=== PATIENT | female | born 1950 | race Caucasian/White ===

== ENCOUNTER → 2021-09-14 | Outpatient (CLI) | payer MEDICARE, OTHER, SELFPAY ==
--- NOTE | 2021-09-14 16:04 | CT_ITS ---
HISTORY: OSTEO. TECHNIQUE: Helically acquired images were obtained of the left lower extremity utilizing ERIK protocol. A radiation dose optimization technique was used for this scan. IV Contrast dosage and agent: None. 1991 images. COMPARISON: None. FINDINGS: BONES: Right knee arthroplasty noted on the sales floor associate image. No acute osseous abnormality identified. ALIGNMENT/JOINT SPACES: Mild joint space narrowing of the hip. Tricompartmental degenerative changes of the knee with osteophytes and moderate medial compartment joint space narrowing. Unremarkable alignment. Mild left knee joint effusion. Degenerative changes of the ankle and foot. SOFT TISSUES: Subcutaneous edema of the left lower extremity. Ossification and thickening of the Achilles tendon from old trauma or degeneration. CT/Extremity Lower without Contra IMPRESSION: CT left lower extremity for Erik protocol. Degenerative changes of the left lower extremity. Electronically Signed: Tania Jay MD at 11:22 EDT ,
== END | disposition home or self-care (01) ==
LOC: CT 16:02
PROVIDERS: Referring Provider Student in an Organized Health Care Education/Training Program; Visit Provider Student in an Organized Health Care Education/Training Program
DX: M17.12 Unilateral primary osteoarthritis, left knee (principal)
CPT/HCPCS: 73700

== ENCOUNTER 2021-09-27 11:31 | Observation (INO) | payer MEDICARE, OTHER, SELFPAY ==
--- NOTE | 2021-09-18 10:35 | EKG12_ITS ---
Test Reason : Blood Pressure : / mmHG Vent. Rate : 085 BPM Atrial Rate : 085 BPM P-R Int : 152 ms QRS Dur : 086 ms QT Int : 380 ms P-R-T Axes : 046 025 048 degrees QTc Int : 452 ms Normal sinus rhythm Normal ECG Confirmed by JACKIE RIVERA, BIANKA ([id number]), fan mail editor BAR FORTUNE ([id number]) on 09/19/2021 8:49:16 AM Referred By: Mike Herman Confirmed By:BIANKA MEJIA MD
[2021-09-18 11:28] LABS: Absolute Lymphocyte Count 1.47 X10^3/uL (0.83-4.51); Absolute Neutrophil Count 3.6 X10^3/uL (2.0-7.7); Basophil# 0.11 X10^3/uL; Basophil% 1.8 % (0-1); Eosinophil# 0.41 X10^3/uL; Eosinophils% 6.5 % (0-5); Hematocrit 45.1 % (37-47); Hemoglobin 15.5 g/dL (12.0-15.0); Lymphocyte # 1.47 X10^3/ul (0.83-4.51); Lymphocyte % 23.4 % (19-41); Mean Corp Hgb Conc 34.4 g/dL (32-36); Mean Corpuscular Hgb 33.3 pg (27.0-32.0); Mean Corpuscular Volume 96.8 fL (81-99); Mean Platelet Vol. 9.4 fl (6.2-12.0); Monocyte# 0.62 X10^3/uL; Monocyte% 9.9 % (0-10); NRBC Flagged by Analyzer 0 % (0-5); Neutrophil # 3.64 X10^3/uL (2.7-7.7); Neutrophil % 58.1 % (47-70); Platelet Count 199 K/mm3 (150-450); RBC Distribution Width CV 12.4 % (11.6-14.6); RBC Distribution Width SD 43.9 fl (35.1-43.9); Red Blood Count 4.66 M/mm3 (4.2-5.4); White Blood Count 6.3 K/mm3 (4.4-11.0)
[2021-09-18 11:56] LABS: Hemoglobin A1c 4.3 % (3.8-5.6)
[2021-09-18 11:57] LABS: Albumin, Serum 3.5 g/dL (3.2-5.0); Anion Gap 6 (5-15); BUN 14 mg/dL (7-18); Chloride 108 mmol/L (98-107); Creatinine, Serum 0.74 mg/dL (0.55-1.02); EST Glomerular Filtration Rate 83 mL/min (>60); Est Glom Filt Rate - Afr Amer 100 mL/min (>60); Glucose 130 mg/dL (74-106); Magnesium 1.9 mg/dL (1.6-2.6); Potassium 3.8 mmol/L (3.5-5.1); Sodium Level 141 mmol/L (136-145)
[2021-09-27] VITALS (10 sets, daily range): BP systolic 106–155; BP diastolic 57–88; PULSE 72–90; RESP 16–18; TEMP 36.3–37.1; O2SAT 92–100; BMI 30.9
[2021-09-27] MEDS: Acetaminophen 500 MG Tablet 1000 MG PO ×3 (06:17→21:43)
[2021-09-27] MEDS: Gabapentin 600 MG Tablet PO (06:17)
[2021-09-27] MEDS: Magnesium 2 GM IV (06:27)
[2021-09-27] MEDS: Lactated Ringers 1,000 ML 15 ML IV (06:29)
--- NOTE | 2021-09-27 07:45 | KNEE_PTH ---
PATIENT: CONNOR PARSONS LOC: MS3 U#:[id number] AGE/SX: 71/F [place] [facility] RE09/27/[address]: Dr. Mike Herman DO : 1950 BED: 1 DIS: 09/28/2021 SPEC #: [id number] RECD: 09/27/21 11:06 STATUS: ALOK JEANINE #: [id number] JUNE: 09/27/21 07:[address]: Mike Herman DEPT: SURGICAL PATHOLOGY RECD BY: Gianna Musa Tissues: Knee, NOS Procedures: Decalcification bone/plaque Surgery Specimen Level IV HEADER OPERATION: ERAS, total knee replacement robotic arm assist PRE-OP DIAGNOSIS: Osteoarthritis left knee TISSUE SUBMITTED: Left knee bone and tissue MICROSCOPIC DIAGNOSIS Bone and soft tissue, left knee, total knee replacement/resection: Pieces of bone with degenerative osteoarthritic changes. Fibroadipose tissue, fibroconnective tissue and reactive synovial tissue. BASIL:sybil 10/01/2021 MICROSCOPIC DESCRIPTION Slides are reviewed. GROSS DESCRIPTION Received is one container designated bone and soft tissue left knee. The specimen consists of multiple fragments of parry-yellow bone measuring in aggregate 12 x 10 x 3 cm. A small piece of soft tissue is attached to a piece of bone measuring 4 x 1.5 x 0.5 cm. A number of bony fragments contain articular surfaces consistent with tibial plateau and femoral condyle and displaying prominent osteophyte formation, eburnation, and bone erosion. Barnworker Groom sections are submitted in two cassettes as follows: 1 - soft tissue, 2 - bone after decalcification. / BASIL:sybil 09/27/2021 TC:5 [facility]: [id number], [id number]
[2021-09-27] MEDS: Cefazolin 2 GM in 0.9% Normal Saline 100 ML IV (08:08)
[2021-09-27] MEDS: TXA 1000mg in NS100 100ml (IVPB at Incision) 660 MG IV (08:20)
[2021-09-27] MEDS: Lactated Ringers 1,000 ML 999 ML IV (08:30)
[2021-09-27 08:40] LABS: Bedside Glucose 94 mg/dL (74-106)
[2021-09-27] MEDS: TXA 1000mg in NS100 100ml (IVPB at Closure) 660 MG IV (10:45)
--- NOTE | 2021-09-27 11:32 | PCM.OPRPT ---
Report of Operation Date of Procedure: 09/27/21 Description of Surgical Findings:: Preoperative diagnosis: Left knee primary osteoarthritis Postoperative diagnosis: Left knee primary osteoarthritis Procedure: Cemented left total knee arthroplasty Surgeon: Mike Herman DO Can Striper: Lisa Horan PA-C Anesthesia: Spinal with sedation, adductor canal block Anesthesiologist: Dr. Garrett Complications: None apparent Drains: None Estimated blood loss: 50 cc Urinary output: None recorded IV fluids: 1200 cc crystalloid Specimens: Total knee resections Surgical implants: Alonzo triathlon X3 asymmetric patella size A35 10 mm thickness, triathlon cruciate retaining femoral #5, primary tibial baseplate #5, triathlon X3 tibial bearing insert CS size 5 9mm thickness Indications: This is a 71-year-old female seen in the outpatient setting diagnosed with left knee osteoarthritis. She failed nonoperative management with intra-articular corticosteroid injections, activity modification, bracing, aviz-onf-inidpht analgesics. X-rays revealed grade 4 changes. She also had significant patellofemoral arthritis. I recommended a left total knee arthroplasty. Patient had a right total knee arthroplasty performed in [place] a little over 2 years ago and has done well with this. The risks, benefits, alternatives to procedure reviewed with patient at length and she agreed to proceed. Risks included but were not limited to bleeding, infection, loss of life or limb, need for additional surgery, persistent pain, intraoperative or postoperative fracture, instability, loosening of components, wound complications, stiffness, neurovascular injury, DVT or PE. Patient expressed understanding these risks and wished to proceed with surgery. Informed consent was obtained in the outpatient setting. Description of procedure: Patient was identified in the preoperative holding area by name, medical record number, and date of . Informed set was confirmed with the patient. The operative knee was marked with a surgical marker. At time of her procedure, patient brought to the operative suite and positioned supine a standard operating table. Anesthesia then administered a spinal anesthetic in the sitting position. She was then repositioned in the supine position with all bony prominences well-padded. We then placed a well-padded pneumatic tourniquet on the left upper thigh. The left upper extremity was brought across patient's chest throughout the procedure. We then prepped and draped the left lower extremity in a normal, sterile orthopedic fashion. We performed a timeout with all parties in attendance in agreement with the side, site, operation be performed. No concerns were voiced and would like to proceed with surgery. 2 g Ancef was administered prior to the incision by anesthesia staff as well as 1 g IV TXA. I first exsanguinated the left lower extremity with a Esmarch bandage. Tourniquet was inflated to 280 mmHg. Esmarch was removed. I planned a standard midline approach to the left knee approximately 15 cm in length. Skin was sharply incised with a 10 blade scalpel developing full-thickness layers down to the retinaculum. Layers were developed identifying the VMO. I then planned a standard medial parapatellar arthrotomy performed in flexion. The anterior horn of the medial meniscus was released. Hoffa's fat pad was then released. I then everted the patella in extension and brought the knee into 90 degrees of flexion. The anterior horn of the lateral meniscus was then released. The ACL was split in its mid substance with a 10 blade. We then brought the knee back into extension. I measured the outer diameter of the patella to be approximately 46 mm, a patellar reamer was then selected. I measured the thickness of the patella to be 23 mm. I then reamed the patella to a depth of approximately 14 mm. A protective baseplate was then placed on the patella. I then placed pins in the metaphyseal distal femur medial to lateral for the Erik arrays. In similar fashion, I made a 2 cm incision approximately a handsbreadth distal to the tibial tubercle along the medial aspect of the tibia, drilling 2 bicortical pins for the tibial array. The knee was brought into flexion. The patella was subluxed laterally but not everted. Medial and lateral retractors were placed. We then utilized the [employer] software to confirm our planned surgical procedure and oriented with the patient's osseous anatomy. All checks with the Erik system were confirmed. No significant angular deformity was appreciated. Final plan was confirmed. Sawblade was then brought in. I first started with the tibial cut, ensuring protection of the MCL and patellar tendon. A tibial wafer was then excised. I then proceeded to make the posterior femoral, anterior, anterior chamfer cuts with the same blade. Ligaments were protected with [employer] retractors. Sawblade was then exchanged to perform the distal femoral and posterior chamfer cuts. The robot was then removed from the surgical field. Remaining loose bone and meniscus was excised carefully. Posterior osteophytes were removed from the distal femur with a curved osteotome and rongeur. Trial components were then placed. Balance was excellent in both extension and 90 degrees flexion. No mid flexion instability was apparent. I then drilled for a size 35 patella. Patella was trialed. Tracking was excellent. We then marked for tibial baseplate. Distal femoral pegs were drilled. Tibial keel was punched. Trials were removed. Periarticular block was administered. The wound was copiously irrigated with normal saline solution. Simplex cement was then mixed on the back table. Components were then cemented in place with excess cement being removed. Cement was allowed to cure with the components in full extension utilizing a 9 mm trial polyethylene component. While the cement was curing, Betadine solution was irrigated into the wound and the wound edges. After cement had cured fully, trial polyethylene was removed. Tourniquet was deflated. Hemostasis was excellent. An additional 1 g TXA was administered IV. I selected a size 9 mm polyethylene which was placed and impacted per clinical biostatistics director recommendations. Final components appeared very well balanced with excellent range of motion. There is no significant remaining flexion contracture. The wound was copiously irrigated with normal saline solution. Capsule was closed watertight with #1 strata fix barbed suture. Deeper report muscle layer was reapproximated with 0 Vicryl suture. Dermis was reapproximated buried interrupted 2-0 Vicryl suture. Skin was finally reapproximated annmarie. Patient tolerated the procedure well without apparent complication. She was safely awakened in the operative suite, transferred to his hospital bed and subsequently to PACU in stable condition. Need for skilled wardrobe assistant: Lisa Horan PA-C was critical to the outcome of the case. During the course of the procedure the physician wardrobe assistant played a vital role. Her intimate knowledge of my steps in the procedure aided in safe and expedient completion of the procedure. The PA played a vital role in positioning particularly in obtaining the appropriate positioning. The PA was also vital in the retraction of soft tissues during the exposure and projecting vital structures. The PA was also vital and protecting soft tissues during times of bony cuts. She also played a vital role in closure with my direct supervision. The PA was also important during reduction and dislocation of the joint and trials intraoperatively. Post Operative Plan: Patient will be placed in observation overnight. Patient does live at home alone but does have family in the area. Plan is to be discharged home likely tomorrow to continue convalescence. Weightbearing: Range of motion and weightbearing as tolerated left lower extremity. Antibiotics: Ancef 1 g every 8 hours x 3 doses DVT Prophylaxis: Aspirin 81 mg twice daily to start postoperative day #1 Dial: None Dressing: Maintain silver dressing x7 days X-Rays: 2-week x-rays in the office. Follow-up: 2 weeks in my office for staple removal
[2021-09-27] MEDS: Ensure Surgery 237 ML LIQUID PO ×2 (12:51→16:40)
[2021-09-27] MEDS: Lactated Ringers 1,000 ML 125 ML IV (12:52)
[2021-09-27] MEDS: oxyCODONE 5 MG Tablet PO ×2 (13:55→23:21)
[2021-09-27] MEDS: Cefazolin 1 GM/50 ML BAG IV ×2 (15:54→23:17)
[2021-09-27] MEDS: Senna/Docusate Sodium 1 Tablet 2 TABLET PO (21:43)
[2021-09-28 00:20] VITALS: BP 130/96; PULSE 70; RESP 16; TEMP 37.1; O2SAT 98
[2021-09-28 04:20] VITALS: BP 121/54; PULSE 70; RESP 16; TEMP 36.9; O2SAT 94
[2021-09-28] MEDS: Acetaminophen 500 MG Tablet 1000 MG PO (05:13)
[2021-09-28 06:27] LABS: Hematocrit 38.5 % (37-47); Hemoglobin 13.1 g/dL (12.0-15.0); Mean Corpuscular Hgb 33.6 pg (27.0-32.0); Mean Corpuscular Volume 98.7 fL (81-99); Mean Platelet Vol. 9.2 fl (6.2-12.0); Platelet Count 153 K/mm3 (150-450); RBC Distribution Width CV 12.3 % (11.6-14.6); RBC Distribution Width SD 44.6 fl (35.1-43.9); White Blood Count 12.7 K/mm3 (4.4-11.0)
[2021-09-28 06:56] LABS: Anion Gap 4 (5-15); BUN 22 mg/dL (7-18); Calcium,Total 8.6 mg/dL (8.5-10.1); Chloride 110 mmol/L (98-107); Creatinine, Serum 0.79 mg/dL (0.55-1.02); EST Glomerular Filtration Rate 77 mL/min (>60); Est Glom Filt Rate - Afr Amer 93 mL/min (>60); Estimated Creatinine Clearance 60.41 ml/min; Glucose 135 mg/dL (74-106); Potassium 4.2 mmol/L (3.5-5.1); Sodium Level 139 mmol/L (136-145)
--- NOTE | 2021-09-28 07:43 | DS.PCM_ITS ---
Providers Date of Admission: 09/27/21 Primary Care Physician: YAIR LEROY Reason For Visit: LT TOTAL KNEE ROBOTIC Diagnosis Discharge Diagnosis (1) Status post left knee replacement: Status: Acute Code(s): Z96.652 - Presence of left artificial knee joint Plan: POD#1 s/p left robotic assisted total knee arthroplasty - Pain control - PT/OT -patient ambulated well yesterday evening with therapy. Pending progress with morning therapy, anticipate discharge to home later this morning. - DVT PPX -Multimodal with SCDs, early mobilization, KARAN hose, and aspirin 81 mg twice daily - Case management - D/C planning Medications at Discharge Home Medications biotin 1 mg capsule 1 mg PO BID supplement 09/03/13 duloxetine 30 mg capsule,delayed release 60 mg PO DAILY mood 09/03/13 losartan 100 mg tablet (Cozaar) 100 mg PO DAILY bp 09/03/13 multivitamin with folic acid 400 mcg tablet (Thera) 1 tab PO DAILY supplement 09/03/13 hydrochlorothiazide 25 mg tablet 25 mg PO DAILY bp 06/18/16 Lactobacillus acidophilus 10 billion cell capsule (Probiotic) 10,000 mmu cells PO DAILY probiotic 09/14/21 amlodipine 5 mg tablet 5 mg PO DAILY BP 09/14/21 ascorbic acid (vitamin C) 500 mg tablet (Vitamin C) 500 mg PO DAILY supplement 09/14/21 bupropion HCl 150 mg 24 hr tablet, extended release 150 mg PO DAILY mood 09/14/21 cyanocobalamin (vitamin B-12) 250 mcg tablet (Vitamin B-12) 250 mcg PO DAILY supplement 09/14/21 milk thistle 200 mg capsule 200 mg PO BID supplement 09/14/21 acetaminophen 500 mg tablet 1,000 mg PO Q8 #90 tabs 09/28/21 aspirin 81 mg chewable tablet 81 mg PO 0800,1700 4 weeks #56 tabs 09/28/21 oxycodone 5 mg tablet 5 - 10 mg PO Q6H PRN PRN Pain Score 4-10 7 days #56 tabs 09/28/21 sennosides 8.6 mg-docusate sodium 50 mg tablet (Stool Softener-Stimulant Laxative) 2 tab PO BID 7 days #28 tabs 09/28/21 Hospital Course Summary of Care Provided Minutes Spent on Discharge: 15 Hospital Course: Patient underwent uncomplicated left total knee arthroplasty, robotic assisted, 09/27/2021. She was placed in observation overnight for pain control and rehab. She participated well with physical and occupational therapies. Pain was adequately controlled on postoperative day #1. She denies any fevers, chills, nausea or vomiting, chest pain or shortness of breath. She was able be safely discharged home on postoperative day #1. No medical or surgical complications were encountered throughout her stay. Physical Exam Narrative General - A&Ox3, NAD. VSS/AF Left lower extremity -incisional dressing C/D/I. SILT Sural, Saphenous, SPN, DPN, Tibial N. distributions. DP, PT 2+. BCR. DF, PF, EHL 5/5. No calf TTP. Weight / BMI Weight Weight: 228 lb Body Mass Index (BMI) 30.9 ABG / Lab / Microbiology Data Result Diagrams: 09/28/21 06:17 09/28/21 06:17 Laboratory: Laboratory Results - last 24 hr 09/27/21 06:02: POC Glucose 94 09/28/21 06:17: WBC 12.7 H, RBC 3.90 L, Hgb 13.1, Hct 38.5, MCV 98.7, MCH 33.6 H , MCHC 34.0, RDW Std Deviation 44.6 H, RDW Coeff of Ghazala 12.3, Plt Count 153, MPV 9.2 09/28/21 06:17: Sodium 139, Potassium 4.2, Chloride 110 H, Carbon Dioxide 25.0, Anion Gap 4 L, BUN 22 H, Creatinine 0.79, Estim Creat Clear Calc 60.41, Est GFR (MDRD) Af Amer 93, Est GFR (MDRD) Non-Af 77, BUN/Creatinine Ratio 28.0 H, Glucose 135 H, Calcium 8.6 Microbiology: Microbiology 09/18/21 10:49 Swab (Method) Nasal Screen MRSA/MSSA - Final Meaningful Use Info Meaningful Use Diagnoses (Choose all that apply): None applicable Discharge Plan Admission Admit Date/Time: 09/27/21 11:31 Primary Reason for Your Visit: Left TKA Attending Provider: Mike Herman Primary Care Provider: YAIR LEROY Instructions Additional Instructions / Restrictions: Follow preprinted instructions from your surgeon's office. Discharge Orders/Prescriptions Prescriptions: New acetaminophen 500 mg Tablet 1,000 mg PO Q8 Qty: 90 0RF aspirin 81 mg Tablet,Chewable 81 mg PO 0800,1700 28 Days Qty: 56 0RF sennosides-docusate sodium [Stool Softener-Stimulant Laxat] 8.6-50 mg Tablet 2 tab PO BID 7 Days Qty: 28 0RF oxycodone 5 mg Tablet 5 - 10 mg PO Q6H PRN PRN (Reason: Pain Score 4-10) 7 Days Qty: 56 0RF Continued losartan [Cozaar] 100 MG tablet 100 mg PO DAILY duloxetine 30 MG capsule 60 mg PO DAILY multivitamin with folic acid [Thera] 1 TABLET tablet 1 tab PO DAILY biotin 1 MG capsule 1 mg PO BID hydrochlorothiazide 25 MG tablet 25 mg PO DAILY milk thistle 200 mg Capsule 200 mg PO BID cyanocobalamin (vitamin B-12) [Vitamin B-12] 250 mcg Tablet 250 mcg PO DAILY amlodipine 5 mg tablet 5 mg PO DAILY Label Comments: TAKE 1 TABLET BY MOUTH EVERY DAY ascorbic acid (vitamin C) [Vitamin C] 500 mg Tablet 500 mg PO DAILY bupropion HCl 150 mg tablet extended release 24 hr 150 mg PO DAILY Probiotic 10 billion cell Capsule 10,000 mmu cells PO DAILY Referrals / Follow Up: YAIR LEROY [Other] Mike Herman DO [STAFF PHYSICIAN] - 10/12/21 Disposition Disposition (needs filled in before D/C Order can be placed): Home, Self Care
[2021-09-28] MEDS: Aspirin 81 MG TAB.CHEW PO (09:21)
[2021-09-28] MEDS: oxyCODONE 5 MG Tablet PO (09:21)
[2021-09-28 09:27] VITALS: BP 138/77; PULSE 70; RESP 18; TEMP 36.6; O2SAT 95
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
== END 2021-09-28 11:47 | disposition home or self-care (01) ==
LOC: SDC 12:02 → MS3 09-28 07:37
PROVIDERS: Admitting Provider Student in an Organized Health Care Education/Training Program; Referring Provider Student in an Organized Health Care Education/Training Program; Visit Provider Student in an Organized Health Care Education/Training Program
PROC: 0SRD0JZ Replacement of Left Knee Joint with Synthetic Substitute, Open Approach (ICD-10-PCS; CPT 27447; principal; 2021-09-27 07:15)
DX: M17.12 Unilateral primary osteoarthritis, left knee (principal); G62.9 Polyneuropathy, unspecified; I10 Essential (primary) hypertension; Z79.899 Other long term (current) drug therapy; G60.0 Hereditary motor and sensory neuropathy; Z87.891 Personal history of nicotine dependence; F41.9 Anxiety disorder, unspecified; F32.A Depression, unspecified; K08.89 Other specified disorders of teeth and supporting structures; R13.10 Dysphagia, unspecified
CPT/HCPCS: 27447; 01402; 64447; S2900; 36415; 80048; 82040; 82962; 83036; 83735; 85025; 85027; 87081; 88305; 88311; 93005; 96361; 96365; 96366; 97110; 97116; 97162; 97166; 97530; 99218; 99251; C1776; J7120; G0378; G0463

== ENCOUNTER → 2023-02-03 | Outpatient (CLI) | payer MEDICARE, OTHER, SELFPAY ==
--- NOTE | 2023-02-03 13:25 | RAD_ITS ---
INDICATION: cough EXAMINATION/TECHNIQUE: X-RAY - XR Chest 2 Views COMPARISON: June 18, 2016 FINDINGS: LINES/DEVICES: None. LUNGS: No consolidation, edema or effusion. No pneumothorax. MEDIASTINUM AND CARDIOVASCULAR STRUCTURES: Cardiac silhouette not enlarged. Central airways and mediastinal contour are unremarkable. BONES AND SOFT TISSUES: Unremarkable. RAD/Chest PA and Lateral IMPRESSION: No radiographic evidence of acute cardiopulmonary disease. Electronically Signed: Eden Goldberg MD at 13:59 EDT ,
== END | disposition home or self-care (01) ==
LOC: MTRAD 13:23
PROVIDERS: Referring Provider Physician Assistant; Visit Provider Physician Assistant
DX: R05.9 Cough, unspecified (principal)
CPT/HCPCS: 71046

== ENCOUNTER → 2023-03-28 | Outpatient (CLI) | payer MEDICARE, OTHER, SELFPAY ==
--- NOTE | 2023-03-28 11:55 | RAD_ITS ---
EXAM: XR RIGHT TOES, 2 OR MORE VIEWS CLINICAL INDICATION: Right great toe infection TECHNIQUE: Frontal, lateral and oblique views of the toes of the right foot. COMPARISON: No relevant prior studies available. FINDINGS: BONES/JOINTS: Longitudinal oblique fracture of the distal phalanx of the second toe without obvious complete osseous union. No definite callus formation. Metallic plate with transfixing screws and long threaded metallic screw fusing the proximal phalanx and metatarsal of the right big toe. No dislocation. No lytic lesion to suspect osteomyelitis. SOFT TISSUES: Unremarkable. No radiopaque foreign body. RAD/Toe(s) Min 2 Views IMPRESSION: 1. No plain film evidence of osteomyelitis of the right great toe. 2. Intact metallic plate with transfixing screws and threaded metallic screw fusing the proximal phalanx and metatarsal of the right big toe. 3. Longitudinal oblique fracture line along the entire course of the distal phalanx of the right second toe. No obvious callus formation. Please correlate with physical exam. Electronically Signed: Carlos Morris MD at 12:33 EST ,
== END | disposition home or self-care (01) ==
LOC: MTRAD 11:52
PROVIDERS: Referring Provider Physician Assistant Surgical; Visit Provider Physician Assistant Surgical
DX: S90.411A Abrasion, right great toe, initial encounter (principal); L08.9 Local infection of the skin and subcutaneous tissue, unspecified
CPT/HCPCS: 73660

== ENCOUNTER 2023-04-10 07:58 | Outpatient (RCR) | payer MEDICARE, OTHER, SELFPAY ==
[2023-04-10 08:11] VITALS: BP 141/83; PULSE 93; RESP 18; TEMP 36.1
--- NOTE | 2023-04-10 09:19 | PCM.WC.PN ---
Objective Data Objective Data Vital Signs: Vital Signs Temp Pulse Resp BP O2 Del Method 96.9 F L 93 18 141/83 H Room Air 04/10/23 08:11 04/10/23 08:11 04/10/23 08:11 04/10/23 08:11 04/10/23 08:11 Oxygen Delivery Method Room Air Debridement Note Debridement Note Post-Debridement Measurements and Additional Note: Post-Debridement Measurements/Treatment - Nurse 1 - General Ulcer Assessment Start: 04/10/23 08:09 Freq: Status: Active Protocol: LAKESHA Activity Type Activity Date Activity User E-sign Co-sign Detail Recorded Client Recorded Date Recorded By Document 04/10/23 08:11 KW Desktop 04/10/23 08:21 KW 04/10/23 08:11 - Today's Visit Information Type of service Initial Visit Arrival Mode Ambulatory Patient Identification Verified (Name & Yes ) Vital Signs Temperature (97.8 F-99.1 F) 96.9 F L Temperature Source Temporal Pulse Rate (60-100) 93 Pulse Location Monitor Respiratory Rate (12-18) 18 Respiratory rate source Observation Oxygen Delivery Method Room Air Blood Pressure (90/60-120/80) 141/83 H Blood Pressure Mean (mm Hg) 102 Source Monitor Position Sitting Blood Pressure Location Left Arm History Since Last Visit- (Skip if this is Patient's initial visit) Left Footwear Regular Shoe Right Footwear Wedge Shoe Pain Scale: 0-10 Numeric Is Patient Pain Free? Yes Lower Extremity Assessment/ Foot Assessment/ Toe Nail Assessment Left -Posterior Tibial Doppler Multiphasic -Dorsalis Pedis Doppler Multiphasic Right -Posterior Tibial Doppler Multiphasic -Dorsalis Pedis Doppler Multiphasic -Capillary Refill Less than 3 Seconds Communication Assessment Preferred language Mauritian Able to Read Yes Able to Write Yes Communication Tools None Caregiver Communication Skills No Impairment Impairment Right Hearing Abillity Normal Left Hearing Abillity Normal Visual Assistive Devices None Teaching Assessment Preferences Verbal,Written, Demonstration Readiness To Learn Excellent Willingness to Engage in Self Management High Activies Readiness to Engage in Self Management High Activities Anxiety Level Calm Cooperation Cooperative Perception Coherent Interest in Health Problem Asks Questions Education Importance Acknowledges Need Does Patient Smoke tobacco or other Yes substances Smoking Status Never smoker Is Patient Diabetic No Functional Assessment Recent Decline in Ability to Perform Denies Any Declines Culture/Alevism/Rn Clinical Research Cultural/Alevism Needs that may affect No Treatment Plan Would you allow our hospital biztalk consultant to No meet you for the purpose of spiritual/ emotional support? Rn Clinical Research to contact place of [facility] No WC - Nurse 1 - General Ulcer Measurement Start: 04/10/23 08:09 Freq: Status: Active Protocol: Activity Type Activity Date Activity User E-sign Co-sign Detail Recorded Client Recorded Date Recorded By Document 04/10/23 08:11 KW Desktop 04/10/23 08:21 04/10/23 08:11 Wound Center Nurse 1 #1 RT HALLIX -Current Size (cm) - Length 1 -Current Size (cm) - Width 1.6 -Current Size (cm) - Depth 0.2 -Total Square Cm 1.6 -Wound Margin Distinct, Outline Attached -Texture (Rocío-wound Skin Appearance) Assessed,Callus -Moisture (Rocío-wound Skin Appearance) Assessed -Color (Rocío-wound Skin Appearance) Assessed -Temperature (Rocío-wound Skin No Abnormality Appearance) (Pt Warm) -Ulcer Cleansing Rinsed/ Irrigated with Saline -Anesthetic Used 5% Lidocaine Gel Right Calf (cm) 36.3 Right Ankle (cm) 25.2 Left Calf (cm) 36 Left Ankle (cm) 25 WC - Nurse 3 - General Ulcer D/C NN Start: 04/10/23 08:09 Freq: Status: Active Protocol: Activity Type Activity Date Activity User E-sign Co-sign Detail Recorded Client Recorded Date Recorded By Document 04/10/23 08:54 KW Desktop 04/10/23 08:55 04/10/23 08:54 Wound Care Center Nurse 3 #1 RT HALLIX -Primary Dressing Applied Promogran Krystle Matter -Primary Dressing Covered/Secured with Dry Gauze, Secured with Tape -Promogran Krystle Matter 1 Pain Scale: 0-10 Numeric Is Patient Pain Free? Yes WC - Visit Discharge Discharge Condition Stable Ambulatory Status Ambulatory Transportation Private Auto Medication Reconcilliation completed & No provided to patient/care provider Clinical Summary of Care Provided Yes
--- NOTE | 2023-04-10 10:11 | HP.PCM_ITS ---
History of Present Illness Date of Service: 04/10/23 Chief Complaint: Right hallux wound History of Wound: Patient is a 73-year-old female who presents to the wound care center for continued care of right hallux wound. She states the wound first occurred 5 weeks ago (February) when she was vacationing on a cruise ship and bumped the right hallux. States she has been doing dressing changes herself with antibiotic ointment and dry dressings. States that the wound has not progressed in healing after 3 weeks and thus did go seek treatment at the [facility] and was referred to the wound care center. 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 She did undergo previous first metatarsophalangeal joint arthrodesis by a provider in [place] and then underwent revision in [place] with Dr. Sumeet Last. Ulceration is at the plantar medial aspect of the hallucal interphalangeal joint. She states she did return to her previous surgical shoe to attempt to reduce pressure at the site of the big toe. She denies N/V/F/chills. Denies further complaints. [facility] Medical History (Updated 04/10/23 @ 12:[address] Shay Blackwell, DPBlaine) Alcohol use Allergic rhinosinusitis Anxiety Arthritis Cancer Ehbgtyt-Reebk-Uberw disease Depression Difficulty chewing Difficulty swallowing Former smoker GERD (gastroesophageal reflux disease) History of echocardiogram History of pain when walking Hypertension Leg cramps Migraine headache SBO (small bowel obstruction) Wears dentures Home Medications duloxetine 30 mg capsule,delayed release 60 mg PO DAILY mood 09/03/13 [History Last Taken 09/26/21] losartan 100 mg tablet (Cozaar) 100 mg PO DAILY bp 09/03/13 [History Last Taken 09/27/21 05:15] multivitamin with folic acid 400 mcg tablet (Thera) 1 tab PO DAILY supplement 09/03/13 [History Last Taken 09/23/21] hydrochlorothiazide 25 mg tablet 25 mg PO DAILY bp 06/18/16 [History Last Taken 09/26/21] Lactobacillus acidophilus 10 billion cell capsule (Probiotic) 10,000 mmu cells PO DAILY probiotic 09/14/21 [History Last Taken Unknown] amlodipine 5 mg tablet 5 mg PO DAILY BP 09/14/21 [History Last Taken 09/27/21 05:15] ascorbic acid (vitamin C) 500 mg tablet (Vitamin C) 500 mg PO DAILY supplement 09/14/21 [History Last Taken Unknown] bupropion HCl 150 mg 24 hr tablet, extended release 150 mg PO DAILY mood 09/14/21 [History Last Taken 09/26/21] cyanocobalamin (vitamin B-12) 250 mcg tablet (Vitamin B-12) 250 mcg PO DAILY supplement 09/14/21 [History Last Taken Unknown] milk thistle 200 mg capsule 200 mg PO BID supplement 09/14/21 [History Last Taken 09/23/21] oxycodone 5 mg tablet 5 - 10 mg (1 - 2 x 5 mg) PO Q6H PRN PRN Pain Score 4-10 7 days #56 tabs 09/28/21 [Rx Last Taken Unknown] sennosides 8.6 mg-docusate sodium 50 mg tablet (Stool Softener-Stimulant Laxative) 2 tab PO BID 7 days #28 tabs 09/28/21 [Rx Last Taken Unknown] omeprazole 20 mg capsule,delayed release 20 mg PO DAILY #30 caps 02/03/23 [Rx Last Taken Unknown] omeprazole 20 mg capsule,delayed release 20 mg PO DAILY #30 caps 03/28/23 [Rx Last Taken Unknown] Allergy/AdvReac Type Severity Reaction Status Date / Time Iodine and Iodide Containing Allergy Itching Verified 03/28/23 11:25 Produc Surgical History History of facelift History of hand surgery Hx of Achilles tendon repair Hx of amputation of foot Hx of foot surgery Hx of foot surgery Hx of repair of right rotator cuff Hx of total knee arthroplasty Social History Smoking Status: Never smoker ROS Constitutional Constitutional: Denies chills, fatigue or fever(s) Eyes Eyes: Denies blurry vision, change in vision or double vision ENT HEENT: Denies dysphagia, nasal congestion or sore throat Cardiovascular Cardiovascular: Denies chest pain, claudication or fatigue Respiratory/Chest Respiratory/Chest: Denies cough, shortness of breath with exertion or wheezing Gastrointestinal Gastrointestinal: Denies abdominal pain, constipation, diarrhea, nausea or vomiting Genitourinary Genitourinary: Denies dysuria, hematuria or urinary frequency Musculoskeletal Musculoskeletal: Denies joint pain, joint stiffness or joint swelling Integumentary Integumentary: Denies lesions, pruritus or rash Neurologic Neurologic: Denies dizziness, numbness or seizures Psychiatric Psychiatric: Denies anxiety or depression Endocrine Endocrinology: Denies cold intolerance, heat intolerance or polyuria Hematologic/Lymphatic Hematologic/Lymphatic: Denies easy bleeding or easy bruising Vital Signs Vital Signs Vital Signs: 04/10/23 08:11 Temperature 96.9 F L Temperature Source Temporal Pulse Rate 93 Respiratory Rate 18 Blood Pressure 141/83 H Blood Pressure Mean 102 Blood Pressure Source Monitor Blood Pressure Position Sitting Blood Pressure Location Left Arm Oxygen Delivery Method Room Air Physical Exam Const alert, oriented x3 and no apparent distress General Appearance: cooperative HEENT normocephalic Eyes General Eye: normal appearance of both eyes Neck General: normal visual inspection Lymph Lymphatic: no lymphadenopathy noted and no lymphedema noted Resp normal respiratory effort Cardio regular rate and regular rhythm Extremity normal capillary refill, no joint enlargement, no calf tenderness and no pedal edema Extremity Narrative: DP and PT pulses palpable bilateral. Capillary fill time less than 3 seconds to digits bilateral. Dermatological: There is an ulceration at the medial plantar aspect of the right hallux overlying the hallucal interphalangeal joint. Ulceration is surrounded by hyperkeratotic skin. No purulent drainage, no erythema, no malodor, no palpable fluctuance/bogginess, no visible abscess formation, no lymphangitic streaking. There is hyperkeratosis to the distal tuft of the right hallux and plantar styloid process of the fifth metatarsal base. Musculoskeletal: Muscle strength 5 of 5 age-appropriate. Patient is noted to have Wvdcyzl-Hvxcf-Jcsdt disease with cavus foot type, prominent styloid process of the fifth metatarsal base. Skin no rashes or lesions noted, skin turgor normal and no jaundice Neuro moves all extremities Debridement Note Debridement Note Wound debrided: Right hallux Laterality: Right Wound Grade/Stage: Musa stage I Type of Debridement: Excisional debridement Anesthesia Used: 5% Lidocaine Gel Depth: Down to and including healthy tissue and in the subcutaneous layer Percentage of wound debrided: 100 Instrument Used: - (313 blade) Tissue Removed: Fibrous, devitalized subcutaneous, biofilm, slough Severity: Fat Layer Exposed Amount of bleeding with debridement: Mild Bleeding Controlled with: Compression and gauze Patient tolerated procedure: Patient tolerated procedure well Post-Debridement Measurements and Additional Note: Post-Debridement Measurements/Treatment WC - Nurse 1 - General Ulcer Assessment Start: 04/10/23 08:09 Freq: Status: Active Protocol: LAKESHA Activity Type Activity Date Activity User E-sign Co-sign Detail Recorded Client Recorded Date Recorded By Document 04/10/23 08:11 KW Desktop 04/10/23 08:21 KW 04/10/23 08:11 WC - Today's Visit Information Type of service Initial Visit Arrival Mode Ambulatory Patient Identification Verified (Name & Yes ) Vital Signs Temperature (97.8 F-99.1 F) 96.9 F L Temperature Source Temporal Pulse Rate (60-100) 93 Pulse Location Monitor Respiratory Rate (12-18) 18 Respiratory rate source Observation Oxygen Delivery Method Room Air Blood Pressure (90/60-120/80) 141/83 H Blood Pressure Mean 102 Source Monitor Position Sitting Blood Pressure Location Left Arm History Since Last Visit- (Skip if this is Patient's initial visit) Left Footwear Regular Shoe Right Footwear Wedge Shoe Pain Scale: 0-10 Numeric Is Patient Pain Free? Yes Lower Extremity Assessment/ Foot Assessment/ Toe Nail Assessment Left -Posterior Tibial Doppler Multiphasic -Dorsalis Pedis Doppler Multiphasic Right -Posterior Tibial Doppler Multiphasic -Dorsalis Pedis Doppler Multiphasic -Capillary Refill Less than 3 Seconds Communication Assessment Preferred language Croatian Able to Read Yes Able to Write Yes Communication Tools None Caregiver Communication Skills No Impairment Impairment Right Hearing Abillity Normal Left Hearing Abillity Normal Visual Assistive Devices None Teaching Assessment Preferences Verbal,Written, Demonstration Readiness To Learn Excellent Willingness to Engage in Self Management High Activies Readiness to Engage in Self Management High Activities Anxiety Level Calm Cooperation Cooperative Perception Coherent Interest in Health Problem Asks Questions Education Importance Acknowledges Need Does Patient Smoke tobacco or other Yes substances Smoking Status Never smoker Is Patient Diabetic No Functional Assessment Recent Decline in Ability to Perform Denies Any Declines Culture/Yarsanism/Product Marketing Intern Cultural/Yarsanism Needs that may affect No Treatment Plan Would you allow our hospital director merit system to No meet you for the purpose of spiritual/ emotional support? Product Marketing Intern to contact place of anabaptist No HARLEY - Nurse 1 - General Ulcer Measurement Start: 04/10/23 08:09 Freq: Status: Active Protocol: Activity Type Activity Date Activity User E-sign Co-sign Detail Recorded Client Recorded Date Recorded By Document 04/10/23 08:11 KW Desktop 12/28/23 08:21 KW 04/10/23 08:11 Wound Center Nurse 1 #1 RT HALLIX -Current Size (cm) - Length 1 -Current Size (cm) - Width 1.6 -Current Size (cm) - Depth 0.2 -Total Square Cm 1.6 -Wound Margin Distinct, Outline Attached -Texture (Rocío-wound Skin Appearance) Assessed,Callus -Moisture (Rocío-wound Skin Appearance) Assessed -Color (Rocío-wound Skin Appearance) Assessed -Temperature (Rocío-wound Skin No Abnormality Appearance) (Pt Warm) -Ulcer Cleansing Rinsed/ Irrigated with Saline -Anesthetic Used 5% Lidocaine Gel Right Calf (cm) 36.3 Right Ankle (cm) 25.2 Left Calf (cm) 36 Left Ankle (cm) 25 WC - Nurse 3 - General Ulcer D/C NN Start: 04/10/23 08:09 Freq: Status: Active Protocol: Activity Type Activity Date Activity User E-sign Co-sign Detail Recorded Client Recorded Date Recorded By Document 04/10/23 08:54 KW Desktop 04/10/23 08:55 04/10/23 08:54 Wound Care Center Nurse 3 #1 RT HALLIX -Primary Dressing Applied Promogran Krystle Matter -Primary Dressing Covered/Secured with Dry Gauze, Secured with Tape -Promogran Krystle Matter 1 Pain Scale: 0-10 Numeric Is Patient Pain Free? 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 Ulceration measures 2 cm x 0.6 cm x 0.2 cm. Krystle applied to wound bed and dressed with dry sterile dressing. She is to change dressing daily. She is to continue to offload and surgical shoe to the right foot with felt offloading pad about the hallux. Will seek approval for EpiFix graft application for next visit. Encouraged adequate protein intake for wound healing. Michael supplementation recommended. Discussed signs and symptoms of infection. She was instructed if she gets redness about the ulcerative site that moves up the foot, or if she has purulent drainage from the wound site, increasing foul odor, or if she experiences fever greater than 101 degree, or nausea, vomiting, chills these are signs of a progressing infection and she should report to the ED for IV antibiotics. She voices understanding of this. The following work up and care recommendations were made: Dressing: Krystle, dry sterile dressing. Change dressing daily. Wash: Soap and water Tissue growth optimization: Krystle Offload: Offload with surgical shoe and felt offloading padding about the hallux right foot Vascular: Palpable DP and PT pulses with adequate capillary fill time. Edema: No edema Infection: No signs of infection Pain: May take [id number] Tylenol for discomfort Host factors: Jrzujvj-Pqhgu-Dxids disease, previous first MTPJ arthrodesis right foot I answered all the patient's questions. To return to the wound healing center in 1 week or call sooner if the patient has any questions or concerns.
== END 2023-04-13 23:59 | disposition home or self-care (01) ==
LOC: WC 07:58
PROVIDERS: Referring Provider Physician Assistant Surgical; Visit Provider Student in an Organized Health Care Education/Training Program
DX: L97.512 Non-pressure chronic ulcer of other part of right foot with fat layer exposed (principal); I10 Essential (primary) hypertension; G60.0 Hereditary motor and sensory neuropathy
CPT/HCPCS: 11042; 99213; G0463

== ENCOUNTER 2023-04-17 10:59 | Outpatient (RCR) | payer MEDICARE, OTHER, SELFPAY ==
[2023-04-14 00:27] VITALS: BP 141/83; PULSE 93; RESP 18; TEMP 36.1
[2023-04-17 11:05] VITALS: BP 158/78; PULSE 91; RESP 16; TEMP 35.8
--- NOTE | 2023-04-17 13:08 | PCM.WC.PN ---
History of Present Illness Date of Service: 04/17/23 Chief Complaint: Right hallux wound History of Wound: Patient is a 73-year-old female who presents to the wound care center for continued care of right hallux wound. She states the wound first occurred 5 weeks ago (February) when she was vacationing on a cruise ship and bumped the right hallux. States she has been doing dressing changes herself with antibiotic ointment and dry dressings. States that the wound has not progressed in healing after 3 weeks and thus did go seek treatment at the [facility] and was referred to the wound care center. 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 She did undergo previous first metatarsophalangeal joint arthrodesis by a provider in [place] and then underwent revision in [place] with Dr. Sumeet Last. Ulceration is at the plantar medial aspect of the hallucal interphalangeal joint. She states she did return to her previous surgical shoe to attempt to reduce pressure at the site of the big toe. She denies N/V/F/chills. Denies further complaints. Subjective Subjective Patient is a 73-year-old female who presents to the wound care center today for continued follow-up of plantar medial hallux ulceration. Patient has change dressing daily as instructed. She denies constitutional symptoms today. Denies further complaints today. States she will be headed to [place] over the weekend and will not return until late May early June. Objective Data Objective Data Vital Signs: Vital Signs Temp Pulse Resp BP O2 Del Method 96.4 F L 91 16 158/78 H Room Air 04/17/23 11:05 04/17/23 11:05 04/17/23 11:05 04/17/23 11:05 04/17/23 11:05 Oxygen Delivery Method Room Air Physical Exam Const alert, oriented x3 and no apparent distress General Appearance: cooperative HEENT normocephalic Eyes General Eye: normal appearance of both eyes Neck General: normal visual inspection Lymph Lymphatic: no lymphadenopathy noted and no lymphedema noted Resp normal respiratory effort Cardio regular rate and regular rhythm Extremity normal capillary refill, no joint enlargement, no calf tenderness and no pedal edema Extremity Narrative: DP and PT pulses palpable bilateral. Capillary fill time less than 3 seconds to digits bilateral. Dermatological: There is an ulceration at the medial plantar aspect of the right hallux overlying the hallucal interphalangeal joint. Ulceration is surrounded by hyperkeratotic skin. No purulent drainage, no erythema, no malodor, no palpable fluctuance/bogginess, no visible abscess formation, no lymphangitic streaking. There is hyperkeratosis to the distal tuft of the right hallux and plantar styloid process of the fifth metatarsal base. Musculoskeletal: Muscle strength 5 of 5 age-appropriate. Patient is noted to have Uhwnzlm-Jugbh-Xlndg disease with cavus foot type, prominent styloid process of the fifth metatarsal base. Skin no rashes or lesions noted, skin turgor normal and no jaundice Neuro moves all extremities Debridement Note Debridement Note Wound debrided: Right hallux Laterality: Right Wound Grade/Stage: Musa stage I Type of Debridement: Excisional debridement Anesthesia Used: 5% Lidocaine Gel Depth: Down to and including healthy tissue and in the subcutaneous layer Percentage of wound debrided: 100 Instrument Used: #15 blade Tissue Removed: fibrous, devitalized subcutaneous, biofilm, slough Severity: Fat Layer Exposed Amount of bleeding with debridement: Mild Bleeding Controlled with: Compression and gauze Patient tolerated procedure: Patient tolerated procedure well Post-Debridement Measurements and Additional Note: Post-Debridement Measurements/Treatment HARLEY - Nurse 1 - General Ulcer Assessment Start: 04/17/23 11:05 Freq: Status: Active Protocol: LAKESHA Activity Type Activity Date Activity User E-sign Co-sign Detail Recorded Client Recorded Date Recorded By Document 04/17/23 11:05 KW Desktop 04/17/23 11:08 KW 04/17/23 11:05 - Today's Visit Information Type of service Follow-up Visit (Physician/CLIMATOLOGY PROFESSOR ) Arrival Mode Ambulatory Patient Identification Verified (Name & Yes ) Vital Signs Temperature (97.8 F-99.1 F) 96.4 F L Temperature Source Temporal Pulse Rate (60-100) 91 Pulse Location Monitor Respiratory Rate (12-18) 16 Respiratory rate source Observation Oxygen Delivery Method Room Air Blood Pressure (90/60-120/80) 158/78 H Blood Pressure Mean (mm Hg) 104 Source Monitor Position Semi-Fowlers Blood Pressure Location Right Arm History Since Last Visit- (Skip if this is Patient's initial visit) Have you changed medications since your No last visit? Any new allergies or adverse reactions No Had a fall/change in ADL's that may No increase risk of falls Signs or symptoms of abuse and/or No neglect since last visit Have you been in the hospital since your No last visit? Has dressing in place as prescribed Yes Has compression in place as prescribed N/A Has offloadiing in place as prescribed Yes Experienced any changes in pain level or No management Left Footwear Regular Shoe Right Footwear Surgical Shoe with pressure relief insole Pain Scale: 0-10 Numeric Is Patient Pain Free? Yes HARLEY - Nurse 1 - General Ulcer Measurement Start: 04/17/23 11:05 Freq: Status: Active Protocol: Activity Type Activity Date Activity User E-sign Co-sign Detail Recorded Client Recorded Date Recorded By Document 04/17/23 11:05 KW Desktop 04/17/23 11:08 KW 04/17/23 11:05 Wound Center Nurse 1 #1 RT HALLIX -Current Size (cm) - Length 0.3 -Current Size (cm) - Width 0.3 -Current Size (cm) - Depth 0.2 -Total Square Cm 0.09 -Exudate Amt Small -Exudate Type Serosanguineous -Wound Margin Distinct, Outline Attached -Granulation Amt Medium (34-66%) -Granulation Quality [place] -Texture (Rocío-wound Skin Appearance) Callus -Moisture (Rocío-wound Skin Appearance) Assessed -Color (Rocío-wound Skin Appearance) Assessed -Ulcer Cleansing Soap and Water -Anesthetic Used 5% Lidocaine Gel HARLEY - Nurse 2 - General Ulcer CM Notes Start: 04/17/23 11:05 Freq: Status: Active Protocol: Activity Type Activity Date Activity User E-sign Co-sign Detail Recorded Client Recorded Date Recorded By Document 04/17/23 12:26 PL [id number] 04/17/23 12:28 PL 04/17/23 12:26 Wound Center Nurse 2 -Time 11:32 -Correct Patient Yes -Correct Side, Site, Position Yes -Correct Procedure Yes -Procedure Performed Yes -Type of Procedure Debridement -Clinical Debridement Subcutaneous -Tissue Removed Subcutaneous -Post Debridement (cm) - Length 0.4 -Post Debridement (cm) - Width 0.6 -Post Debridement (cm) - Depth 0.2 -Total Square (Post) (cm) 0.24 -Area of Debridement (cm) - Length 0.4 -Area of Debridement (cm) - Width 0.6 -Total Square (Area) (cm) 0.24 -Tunneling No -Undermining/Tunneling No -Circular Undermining No -Wound/Ulcer Outcome Not Healed -Ulcer Cleansing Rinsed/ Irrigated with Saline -Foul Odor after Cleansing No -Bioengineered Tissue Yes -Type of Bioengineered Tissue Epifix -Expiration Date 12/14/27 -Product Lot Number [id number] -Percent Used 100 -Bleeding Controlled with Pressure -Treatment Response Procedure Tolerated Well -Debridement - Subq, 1st 20sq cm No -Apply Skin Sub - 1st 25 sq cm - Feet 1 -Epifix (per sq cm) 4 Pain Scale: 0-10 Numeric Is Patient Pain Free? Yes - Nurse 3 - General Ulcer D/C NN Start: 04/17/23 11:05 Freq: Status: Active Protocol: Activity Type Activity Date Activity User E-sign Co-sign Detail Recorded Client Recorded Date Recorded By Document 04/17/23 11:47 KW Desktop 04/17/23 11:48 KW 04/17/23 11:47 Wound Care Center Nurse 3 #1 RT HALLIX -Primary Dressing Covered/Secured with Dry Gauze & Roll Gauze, Secured with Tape Pain Scale: 0-10 Numeric Is Patient Pain Free? 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 Ulceration measures 0.4 cm x 0.6 cm x 0.2 cm. Epifix graft # 1 applied to wound bed and dressed with Adaptic touch, anchored with Steri-Strips, and dressed with dry sterile dressing. She is to change outer dressing as needed. She is to continue to offload and surgical shoe to the right foot with felt offloading pad about the hallux. She was instructed to not get the dressing wet and utilize cast bag when showering. Ulceration has demonstrated reduction in size versus previous visit. She has been approved for EpiFix graft application, will continue applications. Encouraged adequate protein intake for wound healing. Michael supplementation recommended. Discussed signs and symptoms of infection. She was instructed if she gets redness about the ulcerative site that moves up the foot, or if she has purulent drainage from the wound site, increasing foul odor, or if she experiences fever greater than 101 degree, or nausea, vomiting, chills these are signs of a progressing infection and she should report to the ED for IV antibiotics. She voices understanding of this. The following work up and care recommendations were made: Dressing: EpiFix graft, Adaptic touch, Steri-Strips, dry sterile dressing. Change outer dressing as needed Wash: Do not get wet Tissue growth optimization: EpiFix graft Offload: Offload with surgical shoe and felt offloading padding about the hallux right foot Vascular: Palpable DP and PT pulses with adequate capillary fill time. Edema: No edema Infection: No signs of infection Pain: May take [id number] Tylenol for discomfort Host factors: Tmqpapr-Wzmkh-Pvkuy disease, previous first MTPJ arthrodesis right foot At this time she is going to [place] until the end of May/beginning of June and thus is being discharged from the wound care center. She will seek treatment in [place]. Clerical Grader was recommended to her in [place], [place]. I answered all the patient's questions. To return to the wound healing center once she returns from [place] or call sooner if the patient has any questions or concerns.
== END 2023-05-14 23:59 | disposition home or self-care (01) ==
LOC: WC 10:59
PROVIDERS: Referring Provider Physician Assistant Surgical; Visit Provider Student in an Organized Health Care Education/Training Program
DX: L97.512 Non-pressure chronic ulcer of other part of right foot with fat layer exposed (principal); G60.0 Hereditary motor and sensory neuropathy; I10 Essential (primary) hypertension
CPT/HCPCS: 15275; Q4186